=== PATIENT | male | born 1940 | race Caucasian/White ===

== ENCOUNTER 2024-06-04 06:11 | Inpatient (IN) ==
[2024-06-04 07:26] LABS: Basophils # (Auto) 0.03 K/mcL (0.00-0.30); Basophils % (Auto) 0.2 % (0.0-2.0); Eosinophils # (Auto) 0.04 K/mcL (0.00-0.70); Eosinophils % (Auto) 0.3 % (0.0-7.0); Hematocrit 40.8 % (40.1-51.0); Hemoglobin 12.6 g/dL (13.7-17.5); Lymphocytes # (Auto) 1.68 K/mcL (1.50-4.80); Lymphocytes % (Auto) 10.7 % (15.5-49.0); Mean Cell Volume 94.7 fL (80.0-100.0); Mean Corpuscular HGB Conc 30.9 g/dL (31.0-36.0); Mean Platelet Volume 9.5 fL (8.8-12.5); Monocytes # (Auto) 0.86 K/mcL (0.10-0.90); Monocytes % (Auto) 5.5 % (1.0-12.0); Platelet Count 274 K/mcL (140-440); RBC 4.31 M/mcL (4.63-6.08); Red Cell Distribution Width 13.6 % (11.5-14.5); WBC 15.7 K/mcL (4.5-11.0)
[2024-06-04 07:35] LABS: INR 1.2 (0.9-1.1); Prothrombin Time 15.2 sec (11.9-14.5)
[2024-06-04 07:39] LABS: Appearance,Urine Clear (Clear); Bilirubin,Urine Small mg/dL (Negative); Color,Urine Yellow; Glucose,Urine (UA) Negative (Negative); Ketones,Urine >=160 mg/dL (Negative); Leukocyte Esterase,Urine Negative /uL (Negative); Nitrate,Urine Negative (Negative); Protein,Urine 100 mg/dL (Negative); Urine Blood Trace-intact ery/mcL (Negative); Urine Hyaline Cast 4 /lph (0-2); Urine RBC 0 /hpf (0-3); Urine Squamous Epithelial Cell 0 /hpf (0-4); Urine WBC 0 /hpf (0-4); Urobilinogen,Urine Normal
[2024-06-04] MEDS: cefTRIAXone 2 GM in DEXTROSE 5% IN WATER 50 ML IV ONE (07:42)
[2024-06-04 08:23] LABS: Thyroid Stimulating Hormone 1.49 uIU/mL (0.27-5.01)
[2024-06-04 08:31] LABS: ALT/SGPT 12 U/L (<40); AST/SGOT 22 U/L (<40); Albumin 3.4 gm/dL (3.2-5.2); Albumin/Globulin Ratio 1.3 (1.0-2.3); Alkaline Phosphatase 85 U/L (39-117); Bilirubin,Total 1.1 mg/dL (0.1-1.0); Blood Urea Nitrogen 13 mg/dL (8-23); Calcium 8.5 mg/dL (8.6-10.4); Carbon Dioxide 15 mmol/L (22-30); Chloride 96 mmol/L (96-108); Globulin 2.6 gm/dL (2.2-3.7); Glomerular Filtration Rate 47; Glucose 114 mg/dL (70-105); Potassium 4.6 mmol/L (3.3-5.1); Sodium 134 mmol/L (133-145)
[2024-06-04] MEDS: FUROSEMIDE 20 MG/2 ML VIAL IV ONE (09:40)
[2024-06-04] MEDS: ACETAMINOPHEN 1,000 MG/100 ML BAG IV ONE (09:40)
[2024-06-04] MEDS: AZITHROMYCIN 500 MG in 0.9 % SODIUM CHLORIDE 250 ML IV ONE ×2 (09:42→10:04)
[2024-06-04] MEDS ORDERED: LABETALOL HCL 20 MG/4 ML VIAL IV PRN (11:10)
[2024-06-04] MEDS ORDERED: POTASSIUM CHLORIDE 20 MEQ TABLET PO PRN ×2 (11:10)
[2024-06-04] MEDS ORDERED: ONDANSETRON 4 MG/2 ML VIAL IV PRN (11:10)
[2024-06-04] MEDS ORDERED: SENNOSIDES 1 TABLET PO PRN (11:10)
[2024-06-04] MEDS ORDERED: METOCLOPRAMIDE 10 MG/2 ML VIAL IV PRN (11:10)
[2024-06-04] MEDS ORDERED: POTASSIUM CHLORIDE 40 MEQ in DEXTROSE 5% IN WATER 500 ML IV PRN (11:10)
[2024-06-04] MEDS ORDERED: IPRATROPIUM/ALBUTEROL 3 ML AMPUL.NEB NEB PRN (11:10)
[2024-06-04] MEDS ORDERED: POLYETHYLENE GLYCOL 3350 17 GM PACKET PO PRN (11:10)
[2024-06-04] MEDS ORDERED: MAGNESIUM SULFATE 2 GM/50 ML BAG IV PRN (11:10)
[2024-06-04] MEDS: KETOROLAC 30 MG/ML VIAL IV ONE (11:38)
[2024-06-04] MEDS: SODIUM BICARBONATE 650 MG TABLET PO SCH (15:03)
[2024-06-04] MEDS: 0.9 % SODIUM CHLORIDE 10 ML SYRINGE IV SCH (15:04)
[2024-06-04] MEDS: APIXABAN 5 MG TABLET PO SCH (17:52)
[2024-06-04] MEDS: DOCUSATE SODIUM 100 MG CAPSULE PO SCH (20:41)
[2024-06-04] MEDS: HYDROCODONE/APAP 7.5/325MG TABLET PO PRN (20:42)
[2024-06-05 06:23] LABS: Basophils # (Auto) 0.03 K/mcL (0.00-0.30); Basophils % (Auto) 0.2 % (0.0-2.0); Eosinophils # (Auto) 0.24 K/mcL (0.00-0.70); Eosinophils % (Auto) 1.7 % (0.0-7.0); Hematocrit 35.7 % (40.1-51.0); Hemoglobin 11.3 g/dL (13.7-17.5); Lymphocytes # (Auto) 1.05 K/mcL (1.50-4.80); Lymphocytes % (Auto) 7.4 % (15.5-49.0); Mean Cell Volume 93.2 fL (80.0-100.0); Mean Corpuscular HGB Conc 31.7 g/dL (31.0-36.0); Mean Platelet Volume 9.7 fL (8.8-12.5); Monocytes # (Auto) 0.62 K/mcL (0.10-0.90); Monocytes % (Auto) 4.4 % (1.0-12.0); Neutrophils % (Auto) 86.1 % (38.0-78.0); Platelet Count 249 K/mcL (140-440); RBC 3.83 M/mcL (4.63-6.08); Red Cell Distribution Width 13.7 % (11.5-14.5); WBC 14.2 K/mcL (4.5-11.0)
[2024-06-05 06:49] LABS: ALT/SGPT 10 U/L (<40); AST/SGOT 18 U/L (<40); Albumin/Globulin Ratio 1.3 (1.0-2.3); Alkaline Phosphatase 74 U/L (39-117); Bilirubin,Direct 0.4 mg/dL (<0.3); Bilirubin,Total 0.7 mg/dL (0.1-1.0); Blood Urea Nitrogen 16 mg/dL (8-23); Calcium 8.1 mg/dL (8.6-10.4); Carbon Dioxide 21 mmol/L (22-30); Chloride 98 mmol/L (96-108); Globulin 2.4 gm/dL (2.2-3.7); Glomerular Filtration Rate 43; Glucose 128 mg/dL (70-105); Lactate Dehydrogenase 162 U/L (135-225); Phosphorous 2.6 mg/dL (2.5-4.5); Sodium 131 mmol/L (133-145); Triglycerides 153 mg/dL (<150); Uric Acid 7.2 mg/dL (2.5-8.0)
[2024-06-05] MEDS: PANTOPRAZOLE 40 MG TABLET PO SCH (09:13)
[2024-06-05] MEDS: predniSONE 5 MG TABLET PO SCH (09:14)
[2024-06-05] MEDS: LOSARTAN 50 MG TABLET PO SCH (09:14)
[2024-06-05] MEDS ORDERED: APIXABAN 5 MG TABLET PO SCH (09:15)
[2024-06-05] MEDS: FUROSEMIDE 100 MG/10 ML VIAL IV ONE (10:11)
[2024-06-05] MEDS: methylPREDNISolone SOD SUCC 40 MG/ML VIAL IV ONE (10:12)
[2024-06-05] MEDS: cefTRIAXone 1 GM VIAL IV SCH (10:12)
[2024-06-05] MEDS: ALBUMIN HUMAN 12.5 GM/50 ML VIAL IV ONE (10:57)
[2024-06-05] MEDS: AZITHROMYCIN 500 MG in 0.9 % SODIUM CHLORIDE 250 ML IV SCH (11:38)
[2024-06-05] MEDS: ACETAMINOPHEN 325 MG TABLET PO PRN (12:05)
[2024-06-05] MEDS: FUROSEMIDE 40 MG/4 ML VIAL IV ONE (18:23)
[2024-06-05] MEDS: SIMVASTATIN 10 MG TABLET PO SCH (20:54)
[2024-06-05] MEDS: APIXABAN 5 MG TABLET PO SCH (20:54)
[2024-06-06 05:48] LABS: Basophils # (Auto) 0.01 K/mcL (0.00-0.30); Basophils % (Auto) 0.1 % (0.0-2.0); Eosinophils # (Auto) 0 K/mcL (0.00-0.70); Eosinophils % (Auto) 0 % (0.0-7.0); Hematocrit 35.8 % (40.1-51.0); Hemoglobin 11.7 g/dL (13.7-17.5); Lymphocytes # (Auto) 0.37 K/mcL (1.50-4.80); Lymphocytes % (Auto) 3.8 % (15.5-49.0); Mean Cell Volume 90.4 fL (80.0-100.0); Mean Corpuscular HGB Conc 32.7 g/dL (31.0-36.0); Mean Platelet Volume 9.5 fL (8.8-12.5); Monocytes % (Auto) 3.1 % (1.0-12.0); Neutrophils % (Auto) 92.8 % (38.0-78.0); Platelet Count 243 K/mcL (140-440); RBC 3.96 M/mcL (4.63-6.08); Red Cell Distribution Width 13.3 % (11.5-14.5); WBC 9.7 K/mcL (4.5-11.0)
[2024-06-06 06:13] LABS: ALT/SGPT 11 U/L (<40); AST/SGOT 18 U/L (<40); Albumin 3.2 gm/dL (3.2-5.2); Albumin/Globulin Ratio 1.2 (1.0-2.3); Alkaline Phosphatase 72 U/L (39-117); Bilirubin,Direct 0.3 mg/dL (<0.3); Bilirubin,Total 0.5 mg/dL (0.1-1.0); Blood Urea Nitrogen 22 mg/dL (8-23); Calcium 8.5 mg/dL (8.6-10.4); Carbon Dioxide 20 mmol/L (22-30); Chloride 95 mmol/L (96-108); Globulin 2.7 gm/dL (2.2-3.7); Glomerular Filtration Rate 47; Glucose 209 mg/dL (70-105); Lactate Dehydrogenase 177 U/L (135-225); Phosphorous 3.4 mg/dL (2.5-4.5); Sodium 131 mmol/L (133-145); Triglycerides 111 mg/dL (<150); Uric Acid 7.4 mg/dL (2.5-8.0)
[2024-06-06] MEDS ORDERED: DEXTROSE 50% 50 ML VIAL IV PRN (07:47)
[2024-06-06] MEDS ORDERED: DEXTROSE 31 GM ORAL.SUSP PO PRN (07:47)
[2024-06-06] MEDS: SODIUM BICARBONATE 650 MG TABLET PO SCH (08:04)
[2024-06-06] MEDS: FUROSEMIDE 100 MG/10 ML VIAL IV ONE (09:16)
[2024-06-06 09:31] LABS: Hemoglobin A1C 6.8 % Hgb (4.0-6.0)
[2024-06-06] MEDS: INSULIN LISPRO 1 UNIT/0.01 ML UNIT SQ SCH (11:16)
[2024-06-06] MEDS: CEFEPIME 2 GM VIAL IV SCH (21:01)
[2024-06-07 06:57] LABS: Basophils # (Auto) 0 K/mcL (0.00-0.30); Basophils % (Auto) 0 % (0.0-2.0); Eosinophils # (Auto) 0.02 K/mcL (0.00-0.70); Eosinophils % (Auto) 0.2 % (0.0-7.0); Hematocrit 32.3 % (40.1-51.0); Hemoglobin 10.6 g/dL (13.7-17.5); Lymphocytes # (Auto) 0.53 K/mcL (1.50-4.80); Lymphocytes % (Auto) 4.4 % (15.5-49.0); Mean Cell Volume 90.2 fL (80.0-100.0); Mean Corpuscular HGB Conc 32.8 g/dL (31.0-36.0); Mean Platelet Volume 9.4 fL (8.8-12.5); Monocytes # (Auto) 0.52 K/mcL (0.10-0.90); Monocytes % (Auto) 4.3 % (1.0-12.0); Neutrophils % (Auto) 90.7 % (38.0-78.0); Platelet Count 282 K/mcL (140-440); RBC 3.58 M/mcL (4.63-6.08); Red Cell Distribution Width 13.1 % (11.5-14.5)
[2024-06-07 08:24] LABS: Blood Urea Nitrogen 29 mg/dL (8-23); Calcium 8.6 mg/dL (8.6-10.4); Carbon Dioxide 22 mmol/L (22-30); Chloride 97 mmol/L (96-108); Glomerular Filtration Rate 47; Glucose 163 mg/dL (70-105); Potassium 3.6 mmol/L (3.3-5.1); Sodium 133 mmol/L (133-145)
[2024-06-08 07:57] VITALS: TEMP 98.2; O2SAT 98
[2024-06-08] MEDS: LEVOFLOXACIN 750 MG TABLET PO SCH (09:21)
== END 2024-06-08 10:15 | DRG 871 ==
LOC: ED 06:11 → MEDSUR 10:58
PROVIDERS: ADMIT Internal Medicine; ATTEND Internal Medicine